=== PATIENT | male | born 2000 | race Caucasian/White ===

== ENCOUNTER 2023-05-30 15:06 | Emergency (ER) | payer SELFPAY ==
[2023-05-30 15:07] VITALS: BP 150/107; PULSE 108; RESP 24; TEMP 37.1; O2SAT 97; BMI 41.5
--- NOTE | 2023-05-30 15:25 | EX.ED.DYSGE1 ---
HPI History of Present Illness Chief Complaint: Cold Sx Informant: patient Narrative Narrative: Patient is 22-year-old male with history of tobacco use and prone to bronchitis presenting with flulike symptoms. Symptoms are yesterday morning of and progressively worsening. He is reporting fever with Tmax of 101 degrees, headache, nasal congestion, cough with some sputum production and vomiting. 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 Patient states that he is vomited 5 times since yesterday but over the past few hours is not feeling nauseous and has not vomited. He last had 2 Tylenol last night. Does not take any medicine on a daily basis. Denies any associated abdominal pain and had a normal bowel movement just prior to arrival. Denies associated diarrhea. Denies any myalgias. Is worried about either having the flu or pneumonia. Did try his sisters nebulizer with some improvement of his symptoms and states that his breathing feels tight. No other complaints or concerns reported at this time. PFSH PFSH Home Medications albuterol sulfate 2.5 mg/3 mL (0.083 %) solution for nebulization 2.5 mg (3 mL) inhalation Q4H PRN #25 vials 05/30/23 [Rx Last Taken Unknown] albuterol sulfate 90 mcg/actuation aerosol inhaler (Ventolin HFA) 1 - 2 puff inhalation Q4H PRN PRN Wheezing #1 inh 05/30/23 [Rx Last Taken Unknown] ibuprofen 600 mg tablet 600 mg PO Q6H PRN PRN fever or pain #20 TABLETS 05/30/23 [Rx Last Taken Unknown] ondansetron 4 mg disintegrating tablet 4 mg PO Q8H PRN PRN Nausea #10 tabs 05/30/23 [Rx Last Taken Unknown] prednisone 20 mg tablet 40 mg (2 x 20 mg) PO DAILY #8 tabs 05/30/23 [Rx Last Taken Unknown] Allergy/AdvReac Type Severity Reaction Status Date / Time No Known Allergies Allergy Verified 05/30/23 15:06 Social History Smoking Status: Heavy Smoker (>10/day) ROS ROS ED Constitutional Constitutional ED: Denies chills or fever(s) Eyes Eyes: Denies change in vision ENT ENT ED: Reports other Details: Positive nasal congestion ; Denies ear pain or sore throat Cardiovascular Cardiovascular: Denies chest pain Respiratory/Chest Respiratory/Chest: Reports cough, dyspnea and sputum Gastrointestinal Gastrointestinal: Reports nausea and vomiting; Denies abdominal pain, constipation or diarrhea Genitourinary Genitourinary ED: Denies dysuria Musculoskeletal Musculoskeletal: Denies arthralgias or myalgias Integumentary Denies rash Neurologic Neurologic: Reports headache(s); Denies weakness Psychiatric Psychiatric: Denies anxiety EXAM Physical Exam Const Vital Signs: 05/30/23 15:07 05/30/23 15:15 05/30/23 15:31 Temperature 98.8 F Temperature Source Oral Pulse Rate 108 H 109 H Respiratory Rate 24 H 22 H Respiratory Effort Short of Breath Respiratory Pattern Normal Tachypnea Blood Pressure 150/107 H Blood Pressure Mean 121 Pulse Ox 97 Oxygen Delivery Method Room Air Positive well nourished and well developed General Appearance ED: well developed and NAD HEENT Reports moist mucous membranes Eyes PERRL and EOMs intact bilaterally Neck supple and no JVD Chest Wall inspection of chest normal Resp normal respiratory effort Resp Narrative: Tight breath sounds. Bronchial cough intermittently on exam. Auscultation: wheezes inspiratory wheezes Cardio regular rate and regular rhythm GI normal to inspection, nondistended, normoactive bowel sounds and non-tender Extremity normal to inspection General Extremety ED: Negative for edema General Extremity: Negative for edema Neuro oriented x3 Sensorium / Orientation: alert Motor Exam: Negative for general weakness Psych mental status grossly normal Skin no rashes or lesions noted and no wounds MDM MDM MDM Narrative Medical decision making narrative: Patient evaluated for flulike symptoms. Differential includes acute bronchitis, influenza, viral syndrome and pneumonia. He does not appear to be in any respiratory distress. Will give a DuoNeb and obtain a chest x-ray as well as flu swab. Clinically patient does not appear dehydrated and he does not want IV fluids at this time. He states he is afraid of needles and does not want any blood work. I do not think that they are medically indicated right now either. Patient is given oral Zofran and Motrin for symptom control as well as the emergency room and will reevaluate once results are back. Patient is improvement of breath sounds and feels better after breathing treatment interventions. Is RSV positive. Chest x-ray 2 views reviewed by myself does not show any acute infiltrate. Will start on prednisone and give first dose in the emergency room. Will give prescription for albuterol nebulized solution as well as albuterol HFA. Will prescribe Zofran as well as Motrin for further symptom control. Will give a work note. Counseled on return precautions. He verbalized agreement understand this plan. Discharged home in improved and stable condition. Discharge Plan Triage Chief Complaint: Cold Sx ED Provider: Daphne Santamaria Dx/Rx/DC Orders Clinical Impression: RSV bronchitis Instructions: RSV (Respiratory Syncytial Virus), ED Bronchitis with Wheezing (Adult) Prescriptions: New prednisone 20 mg tablet 40 mg PO DAILY Qty: 8 0RF albuterol sulfate [Ventolin HFA] 90 mcg/actuation HFA aerosol inhaler 1 - 2 puff inhalation Q4H PRN PRN (Reason: Wheezing) Qty: 1 0RF albuterol sulfate 2.5 mg /3 mL (0.083 %) solution for nebulization 2.5 mg inhalation Q4H PRN Qty: 25 0RF Rx Instructions: Use q4 hours and PRN for wheezing ibuprofen 600 mg tablet 600 mg PO Q6H PRN PRN (Reason: fever or pain) Qty: 20 0RF ondansetron 4 mg tablet,disintegrating 4 mg PO Q8H PRN PRN (Reason: Nausea) Qty: 10 0RF Stand Alone Forms: ED Work / School Excuse Primary Care Provider: Care Physician,No Primary Referrals: Kaylene Peres [Non-Staff] - 3-5 Days if not improving Care Physician,No Primary [Primary Care Provider] - Activity Restrictions/Additional Instructions: Drink plenty of fluids. Return if your breathing worsens. Please try to abstain from any tobacco use/smoking. Disposition Disposition: Home, Self Care
[2023-05-30 15:31] VITALS: PULSE 109; RESP 22
[2023-05-30] MEDS: Ipratropium/Albuterol Sulfate 3 ML AMPUL.NEB INHALATION (15:32)
[2023-05-30] MEDS: Ibuprofen 600 MG Tablet PO (15:40)
[2023-05-30] MEDS: Ondansetron ODT 4 MG Tablet PO (15:40)
--- NOTE | 2023-05-30 15:45 | RAD_ITS ---
INDICATION: cough, fever EXAMINATION/TECHNIQUE: X-RAY - XR Chest 2 Views COMPARISON: None. FINDINGS: LINES/DEVICES: None. LUNGS: No consolidation, edema or effusion. No pneumothorax. MEDIASTINUM AND CARDIOVASCULAR STRUCTURES: Cardiac silhouette not enlarged. Central airways and mediastinal contour are unremarkable. BONES AND SOFT TISSUES: Unremarkable. RAD/Chest PA and Lateral IMPRESSION: No radiographic evidence of acute cardiopulmonary disease. Electronically Signed: Kapil Pretty MD at 16:54 EST ,
[2023-05-30 16:54] VITALS: BP 141/85; PULSE 81; RESP 18; TEMP 36.7; O2SAT 96
[2023-05-30] MEDS: predniSONE 20 MG Tablet 60 MG PO (16:55)
== END 2023-05-30 16:56 | disposition home or self-care (01) ==
PROVIDERS: Emergency Provider Emergency Medicine; Visit Provider Emergency Medicine
DX: J20.5 Acute bronchitis due to respiratory syncytial virus (principal); F17.200 Nicotine dependence, unspecified, uncomplicated
CPT/HCPCS: 71046; 87631; 94640; 99284